=== PATIENT | male | born 1995 | race Caucasian/White ===

== ENCOUNTER 2017-04-05 05:25 | Observation (INO) | payer MEDICAID, OTHER ==
[2017-04-05] MEDS ORDERED: Geodon 20 MG INJ IM ONE ×2 (05:28)
--- NOTE | 2017-04-05 05:33 | ERPHSYRPT ---
- History of Present Illness Source: patient, family, EMS, other (policew and friends) Exam Limitations: other (drug induceed state) <BELLA CUEVAS - Last Filed: 04/05/17 08:09> - History of Present Illness Source: police Exam Limitations: clinical condition Timing/Duration: today, hour(s) (5), constant Severity: severe Modifying Factors: Improves With: nothing Associated Symptoms: denies symptoms <CECELIA BOOTH - Last Filed: 04/09/17 07:12> - History of Present Illness Time Seen by Provider: 04/05/17 05:28 Physician History: The patient is a 21-year-old male brought in by police from a friend's house where he was reportedly dropped off by other friends sita. Since being at the friend's house for 4 hours he has been nearly incoherent with brief outbursts of shouting. The patient does not answer questions nor acknowledge his name. He is restrained at police officers with handcuffs. The friends did not know if he had been doing any street drugs. His past medical history is unknown at this time. (CECELIA BOOTH) Allergies/Adverse Reactions: No Known Drug Allergies Allergy (Unverified 04/05/17 09:48) Home Medications: No Reportable Medications [No Reported Medications] 04/05/17 [History] - Review of Systems Constitutional: No Fever, No Chills Eyes: No Symptoms Ears, Nose, & Throat: No Symptoms Respiratory: No Cough, No Dyspnea Cardiac: No Chest Pain, No Edema, No Syncope Abdominal/Gastrointestinal: No Abdominal Pain, No Nausea, No Vomiting, No Diarrhea Genitourinary Symptoms: No Dysuria Musculoskeletal: No Back Pain, No Neck Pain Skin: No Rash Neurological: No Dizziness, No Focal Weakness, No Sensory Changes Psychological: Mood Changes Endocrine: No Symptoms Hematologic/Lymphatic: No Symptoms Immunological/Allergic: No Symptoms All Other Systems: Reviewed and Negative <CECELIA BOOTH - Last Filed: 04/09/17 07:12> - Physical Exam General Appearance: severe distress, other (outbursts) Eye Exam: PERRL/EOMI, eyes nml inspection Ears, Nose, Throat Exam: normal ENT inspection, TMs normal, pharynx normal, moist mucous membranes Neck Exam: normal inspection, non-tender, supple, full range of motion Respiratory Exam: normal breath sounds, lungs clear, No respiratory distress Cardiovascular Exam: tachycardia Gastrointestinal/Abdomen Exam: soft, normal bowel sounds, No tenderness, No mass Rectal Exam: not done Back Exam: normal inspection, normal range of motion, No CVA tenderness, No vertebral tenderness Extremity Exam: normal inspection, normal range of motion, pelvis stable Neurologic Exam: alert, oriented x 3, cooperative, normal mood/affect, nml cerebellar function, nml station & gait, sensation nml, No motor deficits Skin Exam: normal color, warm, dry, No rash Lymphatic Exam: No adenopathy SpO2 Interpretation: normal <CECELIA BOOTH - Last Filed: 04/09/17 07:12> - Nursing Vital Signs Nursing Vital Signs: Initial Vital Signs Pulse Rate 140 H 04/05/17 05:35 Respiratory Rate 24 04/05/17 05:35 O2 Sat by Pulse Oximetry 97 04/05/17 05:35 Pain Scale Pain Intensity 0 - Course Nursing assessment & vital signs reviewed: Yes EKG Interpreted by Me: RATE (116), Sinus Tach, NORMAL AXIS, NORMAL INTERVALS, NORMAL QRS, Non-specific ST Changes (may be drug induced; ) Rhythm Strip: Rate (116), Sinus Tachycardia - Radiology Exams Chest X-ray Interpretation: Interpreted by me, No Pneumonia, No Pneumothorax, Nml Heart Size, No Infiltrates, Other (poor inspiration) - CT Exams Head CT Interpretation: Negative, Tele-radiologist Report, No/Intracranial Hemorrhag <BELLA CUEVAS - Last Filed: 04/05/17 08:09> <CECELIA BOOTH - Last Filed: 04/09/17 07:12> Ordered Tests: Medication Summary Discontinued Medications Generic Name Dose Route Start Last Admin Trade Name Freq PRN Reason Stop Dose Admin Sodium Chloride 1,000 mls @ 999 mls/hr 04/05/17 05:36 04/05/17 06:09 Sodium Chloride 0.9% 1000 Ml IV 04/05/17 06:36 999 mls/hr .[id number] STA Administration Sodium Chloride Confirm 04/05/17 06:07 Sodium Chloride 0.9% 1000 Ml Administered 04/05/17 06:08 Dose 1,000 mls @ ud .ROUTE .STK-MED ONE Potassium Chloride/Sodium Chloride 1,000 mls @ 75 mls/hr 04/05/17 08:30 04/05 10:21 Sodium Chloride 0.9% W/ 40 Meq Kcl 1000ml IV 05/05/17 08:29 75 mls/hr .[id number] KASIA Administration Lorazepam 2 mg 04/05/17 05:49 04/05/17 05:58 Ativan 2 Mg/1 Ml Vial IM 04/05/17 05:50 2 mg STAT ONE Administration Lorazepam Confirm 04/05/17 05:51 Ativan 2 Mg/1 Ml Vial Administered 04/05/17 05:52 Dose 2 mg .ROUTE .STK-MED ONE Potassium Chloride 40 meq 04/05/17 10:00 04/05/17 07:59 Potassium Chl 40 Meq/30 Ml Oral Solution PO 05/05/17 09:59 40 meq DAILY KASIA Administration Potassium Chloride 40 meq 04/05/17 10:00 04/05/17 10:07 Potassium Chloride 20 Meq Powder For Oral Mehreen PO 05/05/17 09:59 40 meq DAILY KASIA Administration Potassium Chloride Confirm 04/05/17 07:18 Potassium Chl 40 Meq/30 Ml Oral Solution Administered 04/05/17 07:19 Dose 40 meq .ROUTE .STK-MED ONE Potassium Chloride 40 meq 04/06/17 10:00 Potassium Chloride 20 Meq Powder For Oral Mehreen PO 05/06/17 09:59 DAILY KASIA Ziprasidone 20 mg 04/05/17 05:28 04/05/17 05:32 Geodon 20 Mg Inj IM 04/05/17 05:29 20 mg STAT ONE Administration Ziprasidone Confirm 04/05/17 05:28 Geodon 20 Mg Inj Administered 04/05/17 05:29 Dose 20 mg IM .STK-MED ONE Lab/Rad Data: Laboratory Result Diagrams 04/05/17 06:25 04/05/17 06:25 Laboratory Results 04/05/17 04/05/17 04/05/17 Range/Units 06:30 06:25 06:25 WBC 17.7 H (4.0-10.5) K/mm3 RBC 5.57 (4.1-5.6) M/mm3 Hgb 16.7 (12.5-18.0) gm/dl Hct 47.0 (42-50) % MCV 84.4 (78-100) fl MCH 30.0 (26-32) pg MCHC 35.5 (32-36) g/dl RDW 12.5 (11.5-14.0) % Plt Count 255 (150-450) K/mm3 MPV 11.2 H (6-9.5) fl Gran % 84.2 H (36.0-66.0) % Lymphocytes % 7.9 L (24.0-44.0) % Monocytes % 7.6 (0.0-12.0) % Eosinophils % 0.1 (0.00-5.0) % Basophils % 0.2 (0.0-0.4) % Basophils # 0.03 (0-0.4) Sodium 149 H (136-145) mEq/L Potassium 2.9 L* (3.5-5.1) mEq/L Chloride 111 H (98-107) mEq/L Carbon Dioxide 20.5 L (21-32) mEq/L Anion Gap 20.4 H (5-15) MEQ/L BUN 19 (9-20) mg/dL Creatinine 1.69 H (0.55-1.30) mg/dl Estimated GFR 56 ML/MIN Glucose 131 H (70-110) MG/DL Calcium 9.9 (8.5-10.1) mg/dL Total Bilirubin 0.50 (0.2-1.0) mg/dL AST 25 (15-37) U/L ALT 35 (12-78) U/L Alkaline Phosphatase 69 (46-116) U/L Serum Total Protein 8.0 (6.4-8.2) gm/dL Albumin 4.6 (3.4-5.0) g/dL Ur Collection Type CATH Urine Color YELLOW (YELLOW) Urine Appearance CLEAR (CLEAR) Urine pH 5.0 (5-6) Ur Specific Mellott 1.030 (1.005-1.025) Urine Protein 30 (Negative) Urine Ketones NEGATIVE (NEGATIVE) Urine Blood SMALL (0-5) Alirio/ul Urine Nitrite NEGATIVE (NEGATIVE) Urine Bilirubin NEGATIVE (NEGATIVE) Urine Urobilinogen NORMAL (0-1) mg/dL Ur Leukocyte Esterase NEGATIVE (NEGATIVE) Urine Microscopic RBC 0-2 (0-2) /HPF Urine Microscopic WBC 0-2 (0-5) /HPF Ur Epithelial Cells FEW (FEW) /HPF Urine Bacteria RARE (NEGATIVE) /HPF Hyaline Casts 10-25 (0-2) /LPF Urine Mucus MODERATE (NEGATIVE) /HPF Urine Glucose NEGATIVE (NEGATIVE) mg/dL Salicylates < 2.8 L (2.8-20.0) mg/dl Urine Opiates Level (NEGATIVE) Ur Methadone (NEGATIVE) Acetaminophen < 2.0 L (10-30) ug/ml Urine Barbiturates (NEGATIVE) Ur Phencyclidine (PCP) (NEGATIVE) Urine Amphetamine (NEGATIVE) U Benzodiazepine Level (NEGATIVE) Urine Cocaine (NEGATIVE) Urine Marijuana (THC) (NEGATIVE) Ethyl Alcohol < 0.010 (0.00-0.01) % Specimen Received 04/05/2017 0630 04/05/17 Range/Units 05:36 WBC (4.0-10.5) K/mm3 RBC (4.1-5.6) M/mm3 Hgb (12.5-18.0) gm/dl Hct (42-50) % MCV (78-100) fl MCH (26-32) pg MCHC (32-36) g/dl RDW (11.5-14.0) % Plt Count (150-450) K/mm3 MPV (6-9.5) fl Gran % (36.0-66.0) % Lymphocytes % (24.0-44.0) % Monocytes % (0.0-12.0) % Eosinophils % (0.00-5.0) % Basophils % (0.0-0.4) % Basophils # (0-0.4) Sodium (136-145) mEq/L Potassium (3.5-5.1) mEq/L Chloride (98-107) mEq/L Carbon Dioxide (21-32) mEq/L Anion Gap (5-15) MEQ/L BUN (9-20) mg/dL Creatinine (0.55-1.30) mg/dl Estimated GFR ML/MIN Glucose (70-110) MG/DL Calcium (8.5-10.1) mg/dL Total Bilirubin (0.2-1.0) mg/dL AST (15-37) U/L ALT (12-78) U/L Alkaline Phosphatase (46-116) U/L Serum Total Protein (6.4-8.2) gm/dL Albumin (3.4-5.0) g/dL Ur Collection Type Urine Color (YELLOW) Urine Appearance (CLEAR) Urine pH (5-6) Ur Specific Mellott (1.005-1.025) Urine Protein (Negative) Urine Ketones (NEGATIVE) Urine Blood (0-5) Alirio/ul Urine Nitrite (NEGATIVE) Urine Bilirubin (NEGATIVE) Urine Urobilinogen (0-1) mg/dL Ur Leukocyte Esterase (NEGATIVE) Urine Microscopic RBC (0-2) /HPF Urine Microscopic WBC (0-5) /HPF Ur Epithelial Cells (FEW) /HPF Urine Bacteria (NEGATIVE) /HPF Hyaline Casts (0-2) /LPF Urine Mucus (NEGATIVE) /HPF Urine Glucose (NEGATIVE) mg/dL Salicylates (2.8-20.0) mg/dl Urine Opiates Level NEG. (NEGATIVE) Ur Methadone NEG. (NEGATIVE) Acetaminophen (10-30) ug/ml Urine Barbiturates NEG. (NEGATIVE) Ur Phencyclidine (PCP) NEG. (NEGATIVE) Urine Amphetamine NEG. (NEGATIVE) U Benzodiazepine Level NEG. (NEGATIVE) Urine Cocaine POS. (NEGATIVE) Urine Marijuana (THC) POS. (NEGATIVE) Ethyl Alcohol (0.00-0.01) % Specimen Received reviewed (BELLA CUEVAS) - Progress Progress: improved (after meds), re-examined (at [facility]) Discussed with : Javi (consulted and accepted for admission) Will see patient in: hospital (observation) Counseled pt/family regarding: lab results, diagnosis, need for follow-up, rad results <BELLA CUEVAS - Last Filed: 04/05/17 08:09> <CECELIA BOOTH - Last Filed: 04/09/17 07:12> - Progress Progress Note: 04/05/17 07:[address] Booth, got report form RN; introduced myself to the patient and examined patient and took updated hx; patient drowsy; easily aroused ; answered questions appropriately and cooperated; followed commands; sts 92% onRA at rest; increased to 94-95 during hx and PE; monitor NSR; VS ok; no focal defecits on exam; some abrasions and contusions; ordered cT head and portable CXR; labs showed low K= 2.7 and K+ po ordered; Salic, acetp and ETOH ok; hi Na 149 - IV fluids given; Cr elevated shellie 1.69; tox screen showed pos for THC and cocaine consistent with presentation. Will monitor and recheck 04/05/17 07:13 also noted elevated WBC at 17.7 wutg left shift may be stressed induced as was fighting for hours; IV fluids infusing 04/05/17 07:30 ua small blood; clear otherwise neg; recheck afdter cT results pending; CXR ok; vs good sats 98% RA 04/05/17 07:37 CT head gross review showed NAD; official report pending; VS good; will consult attending to admit; 04/05/17 07:41 Dr Caldwell consulted and will admit; patient notified 04/05/17 08:03 patietn more awake and asking questions; appropriate; no change in exam except pupils now slight unequal - right 3-4 and left 3; react well; no defecits (BELLA CUEVAS) - Departure Time of Disposition: 07:38 Departure Disposition: Observation Critical Care Time: Yes Critical Care Time(excluding separately billable procedures): 30-74 minutes <BELLA CUEVAS - Last Filed: 04/05/17 08:09> <CECELIA BOOTH - Last Filed: 04/09/17 07:12> - Departure Clinical Impression: poly drug abuse THC and Cocaine, Sinus tachycardia by electrocardiogram, Hypokalemia, Hypernatremia Condition: Good
[2017-04-05] MEDS ORDERED: Sodium Chloride 0.9% 1000 ML 1,000 ML IV STA (05:36)
[2017-04-05] MEDS ORDERED: Ativan 2 MG/1 ML VIAL IM ONE (05:49)
[2017-04-05] MEDS ORDERED: Ativan 2 MG/1 ML VIAL ONE (05:51)
[2017-04-05] MEDS ORDERED: Sodium Chloride 0.9% 1000 ML 1,000 ML ONE (06:07)
[2017-04-05 06:25] LABS: BASOPHIL % 0.2 % (0.0-0.4); Eosinophil % 0.1 % (0.00-5.0); Granulocytes % 84.2 % (36.0-66.0); Lymphocytes % 7.9 % (24.0-44.0); Mean Cell Volume 84.4 fl (78-100); Mean Platelet Volume 11.2 fl (6-9.5); Monocytes % 7.6 % (0.0-12.0); Platelet Count 255 K/mm3 (150-450); Red Blood Count 5.57 M/mm3 (4.1-5.6); Red Cell Distribution Width 12.5 % (11.5-14.0); White Blood Count 17.7 K/mm3 (4.0-10.5)
[2017-04-05 06:48] LABS: ALBUMIN 4.6 g/dL (3.4-5.0); ALKALINE PHOSPHATASE 69 U/L (46-116); ANION GAP 20.4 MEQ/L (5-15); BLOOD UREA NITROGEN 19 mg/dL (9-20); CHLORIDE 111 mEq/L (98-107); Carbon Dioxide 20.5 mEq/L (21-32); Glucose 131 MG/DL (70-110); SGOT/AST 25 U/L (15-37); SGPT/ALT 35 U/L (12-78); SODIUM 149 mEq/L (136-145)
[2017-04-05 07:01] LABS: ACETAMINOPHEN < 2.0 ug/ml (10-30); Potassium 2.9 mEq/L (3.5-5.1)
[2017-04-05 07:03] LABS: ETHYL ALCOHOL < 0.010 % (0.00-0.01)
[2017-04-05 07:05] LABS: Collection Type CATH
[2017-04-05 07:06] LABS: ADD URINE CULTURE? YES (NO); Bacteria RARE /HPF (NEGATIVE); Bilirubin NEGATIVE (NEGATIVE); Blood SMALL Ery/ul (0-5); COMPLETE URINE MICROSCOPIC? YES; Epithelial Cells FEW /HPF (FEW); Glucose NEGATIVE (NEGATIVE); Leukocyte Esterase NEGATIVE (NEGATIVE); Mucus MODERATE /HPF (NEGATIVE); WBC 0-2 /HPF (0-5)
[2017-04-05] MEDS ORDERED: POTASSIUM CHL 40 MEQ/30 ML ORAL SOLUTION ONE (07:18)
[2017-04-05] MEDS ORDERED: SODIUM CHLORIDE 0.9% W/ 40 mEq KCL 1000ML 1,000 ML IV SCH (08:30)
--- NOTE | 2017-04-05 08:40 | XRAY ---
Indication: Fall. Confusion and behavioral problems. Possible drug usage. Multiple contiguous axial images obtained through the head without contrast. Comparison: None Normal appearing brain parenchyma, ventricles, and bony calvarium. Near complete opacification of the left maxillary sinus with mild mucosal thickening of the left ethmoid sinus. Mastoid air cells clear. Impression: Normal CT head without contrast exam. Incidental paranasal sinus disease. CT DI 61.28
--- NOTE | 2017-04-05 08:43 | XRAY ---
Indication: Fall. Behavioral problems. Comparison: March 25, 2014. Portable chest underinflated again demonstrating normal heart, lungs, and bony thorax.
[2017-04-05] MEDS ORDERED: POTASSIUM CHLORIDE 20 MEQ POWDER FOR ORAL SOL PO SCH (10:00)
[2017-04-05] MEDS ORDERED: POTASSIUM CHL 40 MEQ/30 ML ORAL SOLUTION PO SCH (10:00)
[2017-04-05 16:24] VITALS: BP 118/68
[2017-04-05 18:41] LABS: BASOPHIL % 0.3 % (0.0-0.4); Eosinophil % 0.8 % (0.00-5.0); Granulocytes % 70.1 % (36.0-66.0); Lymphocytes % 18.1 % (24.0-44.0); Mean Cell Volume 87.8 fl (78-100); Mean Corpuscular Hemoglobin 29.8 pg (26-32); Mean Platelet Volume 10.7 fl (6-9.5); Monocytes % 10.7 % (0.0-12.0); Platelet Count 232 K/mm3 (150-450); Red Cell Distribution Width 12.9 % (11.5-14.0); White Blood Count 10.5 K/mm3 (4.0-10.5)
[2017-04-05 19:38] LABS: ALBUMIN 3.9 g/dL (3.4-5.0); ALKALINE PHOSPHATASE 56 U/L (46-116); ANION GAP 14.6 MEQ/L (5-15); BLOOD UREA NITROGEN 11 mg/dL (9-20); CHLORIDE 110 mEq/L (98-107); Carbon Dioxide 25.3 mEq/L (21-32); Glucose 83 MG/DL (70-110); Potassium 4.3 mEq/L (3.5-5.1); SGOT/AST 37 U/L (15-37); SGPT/ALT 28 U/L (12-78); SODIUM 146 mEq/L (136-145); Total Protein 6.9 gm/dL (6.4-8.2)
[2017-04-05 19:47] VITALS: PULSE 70; O2SAT 98
[2017-04-06] MEDS ORDERED: POTASSIUM CHLORIDE 20 MEQ POWDER FOR ORAL SOL PO SCH (10:00)
--- NOTE | 2017-04-13 12:58 | SSS ---
DISCHARGE DIAGNOSES: 1) POLYSUBSTANCE ABUSE. 2) HYPOKALEMIA. 3) RENAL INSUFFICIENCY. HISTORY: The patient is a 21 year-old white male patient who was picked up by the police acting strange in his friend's home. The patient had reported that he had taken different drugs with his friend's which he believe was something like Xanax and also smoking marijuana. He is normally treated for anxiety and depression. He is currently residing with high school friends. PAST MEDICAL/SURGICAL HISTORY: Otherwise essentially unremarkable. PHYSICAL EXAMINATION: Revealed a well nourished, well developed 21 year-old white male patient who was somewhat obtunded on my evaluation. HEENT: Otherwise normocephalic, atraumatic. Pupils appeared to be equal round reactive to light. Extraocular movements intact. Oropharynx is pink and moist. NECK: Supple without lymphadenopathy, thyromegaly or JVD. CHEST: Clear to auscultation with good air movement bilaterally. HEART: Regular rate and rhythm without murmurs, rubs or gallops. ABDOMEN: Soft, nontender, nondistended without hepatosplenomegaly or masses. EXTREMITIES: Without clubbing, cyanosis or edema. NEUROLOGIC: No focal deficits noted. The patient's generalized lethargy appeared to be otherwise arousable, alert, oriented x3. LAB DATA AND TESTS: Showed an elevation in his white blood cell count of 17,700 with a slight left shift at 84.2% granulocytes. However the patient denied any signs or symptoms otherwise of infection. He was noted to be somewhat hypokalemic with initial potassium of 2.9. His creatinine was also noted to be somewhat elevated at 1.69. Salicylates and acetaminophen were essentially negative. Alcohol was negative. Tox screen was positive for THC. HOSPITAL COURSE: The patient was admitted to the ICU for monitoring. [facility] consultation was obtained and they agreed that once the patient was awake and alert that he was okay for discharge home with follow up as an outpatient at the [facility]. He already has a counselor which he has been seeing on an occasional basis.
== END 2017-04-05 20:53 | disposition home or self-care (01) ==
LOC: ED 05:25 → ICU 09:39
PROVIDERS: ADMIT Family Medicine; ATTEND Family Medicine
DX: F19.10 Other psychoactive substance abuse, uncomplicated (principal); E87.6 Hypokalemia; E87.0 Hyperosmolality and hypernatremia; F32.9 Major depressive disorder, single episode, unspecified; F41.9 Anxiety disorder, unspecified; N28.9 Disorder of kidney and ureter, unspecified
CPT/HCPCS: 36000; 36415; 51702; 70450; 71010; 80053; 80307; 81000; 82962; 85025; 87086; 90791; 93005; 93041; 96360; 96361; 96372; 99285; G0378; G0481; J2060; J3486; Q3014